=== PATIENT | female | born 1950 | race Caucasian/White ===

== ENCOUNTER 2021-03-08 14:50 | Outpatient (REF) | payer MEDICARE, SELFPAY ==
--- NOTE | ~2021-03-08 | XR_ITS ---
EXAMINATION: RIGHT HAND X-RAY CLINICAL INFORMATION: Pain COMPARISON: None TECHNIQUE: 3 views right hand FINDINGS: There is an ossification projecting over the dorsal wrist questionable for a triquetral fracture. No other fracture is seen. Bone alignment is normal. There is severe arthritis at the IP joints, first FPC joint and trapezoid trapezium scaphoid joints. Bones appear osteopenic. There may be dorsal soft tissue swelling over the wrist. XR/XR hand wrist RT IMPRESSION: Question triquetral fracture. Clinical correlation recommended. Severe arthritis.
== END 2021-03-08 14:51 | disposition home or self-care (01) ==
LOC: HO.HMGCX 14:50
PROVIDERS: PCP Internal Medicine Endocrinology, Diabetes & Metabolism; Visit Provider Nurse Practitioner Family
DX: M79.641 Pain in right hand (principal); M25.531 Pain in right wrist; M67.833 Other specified disorders of tendon, right wrist; Z91.81 History of falling
CPT/HCPCS: 73110; 73130

== ENCOUNTER 2021-03-18 09:56 | Outpatient (REF) | payer MEDICARE, SELFPAY ==
--- NOTE | ~2021-03-18 | XR_ITS ---
EXAMINATION: XR HAND, RIGHT CLINICAL INFORMATION: Right hand pain COMPARISON: None TECHNIQUE: PA, lateral, and oblique views of the right hand. FINDINGS: The bones and soft tissues are normal. No fracture. Alignment is anatomic. Severe joint space narrowing and osteophytosis at the base-metacarpal joint. There is also joint space narrowing at the PIP and PIP joints of the first-fourth digit. No erosions or soft tissue calcifications. 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 Significant degenerative disease at the DIP and PIP joints.
== END 2021-03-18 09:57 | disposition home or self-care (01) ==
LOC: HO.XRAY 09:56
PROVIDERS: PCP Internal Medicine Endocrinology, Diabetes & Metabolism; Visit Provider Physician Assistant
DX: S62.111A Displaced fracture of triquetrum [cuneiform] bone, right wrist, initial encounter for closed fracture (principal); W10.8XXA Fall (on) (from) other stairs and steps, initial encounter; Y93.01 Activity, walking, marching and hiking; Y92.9 Unspecified place or not applicable; Y99.8 Other external cause status
CPT/HCPCS: 25630; 29085; 73130; 99202

== ENCOUNTER → 2021-03-23 10:18 | Outpatient (BNVA) | payer MEDICARE, SELFPAY | PROVIDERS: PCP Internal Medicine Endocrinology, Diabetes & Metabolism; Visit Provider Physician Assistant ==

== ENCOUNTER 2021-04-12 07:51 | Outpatient (REF) | payer MEDICARE, SELFPAY ==
--- NOTE | ~2021-04-12 | XR_ITS ---
EXAMINATION: XR HAND, RIGHT CLINICAL INFORMATION: Followup fracture of the triquetrum. COMPARISON: Right hand 03/18/2021 and 03/08/2021 TECHNIQUE: PA, lateral, and oblique views of the right hand. FINDINGS: There is irregularity involving the triquetral bone, but there is no periosteal thickening or callus formation seen in these 4 weeks. This could be secondary to osteopenia and slow healing. Fracture in this region is suspected. Again visualized is loss of scaphoid-trapezium and 1st carpometacarpal joint space with hypertrophic bony spurring. The rest of the carpometacarpal joint space and ventricular joint space is normal. There is mild osteopenia. The soft tissues are normal. XR/XR hand RT min 3V IMPRESSION: Diffuse osteopenia. Suspect triquetral fracture as was questioned on the previous study 03/08/2021. However, there is no callus formation which could be slow or nonvisualized secondary to diffuse osteopenia. If patient has persistent pain, a CT of this area can be performed. Degenerative arthritic changes 1st carpometacarpal joint and scaphotrapezial joint. Diffuse osteopenia.
== END 2021-04-12 07:52 | disposition home or self-care (01) ==
LOC: HO.HOSX 07:51
PROVIDERS: Visit Provider Physician Assistant
DX: S62.111A Displaced fracture of triquetrum [cuneiform] bone, right wrist, initial encounter for closed fracture (principal)
CPT/HCPCS: 73130; 99212

== ENCOUNTER 2024-04-10 10:49 | Outpatient (AMB) | payer MEDICARE, SELFPAY ==
--- NOTE | 2024-04-10 10:50 | MHC.OFFWIV ---
Intake Vital Signs 04/10/24 10:52 Height 5 ft 5 in Weight 176 lb BMI 29.3 BP 128/84 Blood Pressure Location Lt brachial Position Sitting Pulse 82 Pulse Source Pulse Oximeter Temp 98.7 F Temp Source Oral Pulse Oximetry (%) 97 Oxygen Delivery Method Room Air Intake Visit Reasons: EP LT leg ?growth Intake Note: pt here c/o LT leg lesion. Patient Tobacco Use Status: Former Tobacco user Allergies No Known Allergies Allergy (Verified 04/10/24 10:50) Do you need a note to return to daycare/school/sports/work: No HPI HPI Comments History of Present Illness Details Patient is a 74-year-old female complaining of a lesion on her left thigh that has been there for over a month. She states it started out it was more white now it is turning more red and the center is crusted over with a funk and white material. She states it does not weep or ooze any material, it does not bleed it does not itch and it is not painful, it has not spread, it is not warm. She has not tried to put anything on it to make it better, nothing seems to make it worse. [facility] Medical History Diabetes Heart murmur Social History (Updated 03/18/21 @ 10:59 by MAIKEL Bettencourt) Alcohol intake: current Alcohol intake frequency: holidays/special occasions only Patient Tobacco Use Status: Former Tobacco user Current occupational status: retired Current occupation: [employer] Review of Systems Const All systems reviewed & are unremarkable except as noted in HPI and below Physical Exam Vital Signs: Last Vital Signs Temp 98.7 F 04/10/24 10:52 Pulse 82 04/10/24 10:52 BP 128/84 04/10/24 10:52 Pulse Ox 97 04/10/24 10:52 Oxygen Delivery Method Room Air 04/10/24 10:52 BMI result Body Mass Index 29.3 Const General: cooperative, healthy appearing, comfortable, no acute distress and well developed Orientation/consciousness: patient oriented x3 Limitations: no limitations Eyes General: appearance normal, both eyes and all related structures Resp Effort & Inspection: normal respiratory effort and able to speak in complete sentences Skin Other: 1cm circular, raised lesion which is erythematous on the outside ring, white in the middle ring and in the center has funk/black crusted material in it. Not warm, not TTP, unable to elicit any purulent material. Neuro General: patient oriented x3 Assessment & Plan Assessment & Plan (1) Skin lesion of left leg: Code(s): L98.9 - Disorder of the skin and subcutaneous tissue, unspecified Plan: Recommended patient go to [facility] to have a biopsy taken as it is multiple colored, evolving and not healing. Plan See above Coding Level of Care Code New Pt Level 3 (99689) Diagnoses Skin lesion of left leg L98.9
[2024-04-10 10:52] VITALS: BP 128/84; PULSE 82; TEMP 37.1; O2SAT 97; BMI 29.3
== END 2024-04-10 12:02 | disposition home or self-care (01) ==
PROVIDERS: Visit Provider Physician Assistant
DX: L98.9 Disorder of the skin and subcutaneous tissue, unspecified (principal)
CPT/HCPCS: 99203